=== PATIENT | female | born 1945 | race Caucasian/White ===

== ENCOUNTER 2022-01-03 08:47 | Outpatient (RCR) | payer MEDICARE, SELFPAY ==
--- NOTE | 2022-01-03 10:58 | HP.OTEVAL ---
Patient's Visit Information KATHYA LOWE is a 76 year old F, referred to Occupational Therapy by IESHA GOVEA MD, with a diagnosis of lymphedema. Date of Evaluation: 01/03/22 Occupational Therapist: Socorro Wilcox, OTR/Jarrod, CHT - Subjective this 76 year old female was seen for OT eval with dx of lymphedema- dtr states she has struggled with edema for years and larger last 4 weeks. pts dtr states she has tried compression socks in the past but did not like them so she did not wear them- cardio and nephology cleared pts- pts dtr states swelling use to go down when she would elevate- now no change. pt states she does sit and puts feet on foot stool. family does take pt out for activities, but otherwise pt likes to watch tv. pt states legs are heavy and makes her mobility limited. - Lymphedema (Circumferential Measure) Mid-foot: right 28cm left 28.5cm Ankle: right 36cm left 33.5cm Lower calf: right 34.5cm left 32.5cm Largest calf: right 48cm left 46cm Below knee: right 43cm left 42cm - Lower Limb Functional Index Lower Extremity Functional Score: 18 - Goals Demonstrate a 20% reduction in edema by d/c: Yes Demonstrate adequate knowledge of self-massage by 2nd week: Yes Demonstrate adequate knowledge skin care/prec by 2nd week: Yes Demonstrate adequate knowledge therapeutic exercises by d/c: Yes Select approp compression garment w/donning/care/wear by d/c: Yes Voice need to replace compression garment every 4-6mo by dc: Yes - Rehabilitation General Assessment: pt demo with lymphedema in bilateral LE stage3 lymphedema - with fibrosis hyperkeratosis and papillomatosis along with dx of recurrent cellulitis- conservative methods of elevation and use of compression socks in past pt and family are looking for treatment options- Based on clinical observation- pt demo need for compression when up and about- rec'd 20-30mmHg Velcro closure devices to assist in decreasing limb size vs wraps due to increase risk of skin breakdown or falls when wraps slide down- (gave family surepress wraps and rec'd use when family was around only until they get compression alternative) therapist rec'd pt also avoid sitting in chair with legs on foot stool- rec'd to go ahead and lay on couch with feet up- therapist also rec'd pt to get up every 45 min to increase circulation- therapist ed. pt and family ed. on lymph stim ex and self massage and given handouts-( dtr will asses what pt will be able to follow due to some cognitive deficits) Dtr is nurse and will review the compression alternative as well as looking at the compression socks. Due to pts lymphedema pt would benefit from compression pump devices to assist in life long lymph mtg. Rehabilitation Potential: Questionable - Anticipated Interventions Education re Diagnosis, Education re Life-long lymphedema Management, Education re Skin Care and Precautions, Education re Self Massage Techniques, Education re Correct Donning Tech,Care&Wearing Sched Comp Garments, Caregiver Training, Home Program - Visit Plan TEXT: Thank you for the opportunity to evaluate your patient. For Medicare and Medicare HMO plans, please review the plan of care and approve it. It will need to be FAXED BACK to us at [phone] for Medicare purposes. Please let me know if there are questions or concerns regarding this plan of care. Physician Signature: Date:
--- NOTE | 2022-03-10 13:37 | HP.OT.NRP ---
KATHYA LOWE was seen in my office for initial evaluation on 01/03/22. The following Plan of Care was established for this patient: Anticipated Interventions: Education re Diagnosis, Education re Life-long lymphedema Management, Education re Skin Care and Precautions, Education re Self Massage Techniques, Education re Correct Donning Tech,Care&Wearing Sched Comp Garments, Caregiver Training, Home Program This patient was last seen in our office 01/03/22. Pertinent comments regarding their Occupational therapy will appear below: pt was seen for OT cheryl- no further apts have been scheduled at this time. Due to time lapse in services pt d/c. At this point I will be discontinuing this patient from occupational therapy. I would be happy to see this patient again in the future if found appropriate by the physician. Thank you! Socorro Wilcox, OTR/L, CHT
== END 2022-01-03 19:00 | disposition home or self-care (01) ==
LOC: OT 08:47
PROVIDERS: PCP Family Medicine; Referring Provider Internal Medicine; Visit Provider Internal Medicine
DX: I89.0 Lymphedema, not elsewhere classified (principal)
CPT/HCPCS: 97166; 97530